=== PATIENT | female | born 1960 | race Caucasian/White ===

== ENCOUNTER 2016-09-02 09:18 | Day surgery (SDC) | payer OTHER ==
[~2016-09-02] VITALS: Ht 167.6 cm; Wt 65.8 kg
[~2016-09-02 09:18] MED LIST: EFFEXOR75 MG PO; FISH OIL-OMEGA1 EACH PO; NAPROSYN500 MG PO; NEURONTIN300 MG PO; POTASSIUM-9999 MG PO; SENOKOT S,PE1 TABLET PO; TOPAMAX50 MG PO; ZANAFLEX4 M1 PO
== END 2016-09-02 11:10 | disposition home or self-care (01) ==
LOC: PAIN 09:18 → SDC 10:00 → PAIN 10:00
DX: M50.122 Cervical disc disorder at C5-C6 level with radiculopathy (principal); Z87.891 Personal history of nicotine dependence
CPT/HCPCS: J1030; J2250; J3010

== ENCOUNTER 2016-10-06 13:14 | Day surgery (SDC) | payer OTHER ==
[~2016-10-06] VITALS: Ht 167.6 cm; Wt 65.8 kg
== END 2016-10-06 15:34 | disposition home or self-care (01) ==
LOC: PAIN 13:14 → SDC 13:45 → PAIN 13:45
PROC: 3E0S33Z Introduction of Anti-inflammatory into Epidural Space, Percutaneous Approach (ICD-10-PCS; principal; 2016-10-06)
DX: M47.22 Other spondylosis with radiculopathy, cervical region (principal); F41.9 Anxiety disorder, unspecified; M47.816 Spondylosis without myelopathy or radiculopathy, lumbar region; M79.7 Fibromyalgia; G62.9 Polyneuropathy, unspecified; Z87.891 Personal history of nicotine dependence; Z85.71 Personal history of Hodgkin lymphoma; M81.0 Age-related osteoporosis without current pathological fracture; Z85.828 Personal history of other malignant neoplasm of skin; Z98.1 Arthrodesis status; Z88.5 Allergy status to narcotic agent
CPT/HCPCS: J1030; J2250; J2405; J3010

== ENCOUNTER 2016-11-17 14:14 | Day surgery (SDC) | payer OTHER | END 2016-11-17 15:54 | disposition home or self-care (01) | LOC: PAIN 14:14 → SDC 14:45 → PAIN 14:45 | DX: M47.26 Other spondylosis with radiculopathy, lumbar region (principal); M47.22 Other spondylosis with radiculopathy, cervical region; M79.7 Fibromyalgia; G62.9 Polyneuropathy, unspecified; Z87.891 Personal history of nicotine dependence; Z85.72 Personal history of non-Hodgkin lymphomas | CPT/HCPCS: J1030; J2250; J3010; S0020 ==

== ENCOUNTER 2016-11-24 14:20 | Day surgery (SDC) | payer OTHER ==
[~2016-11-24] VITALS: Ht 167.6 cm; Wt 65.8 kg
[2016-11-24] MEDS ORDERED: GABAPENTIN400 MG PO (14:35)
== END 2016-11-24 16:35 | disposition home or self-care (01) ==
LOC: PAIN 14:20 → SDC 15:00 → PAIN 15:00
DX: M47.26 Other spondylosis with radiculopathy, lumbar region (principal); M48.061 Spinal stenosis, lumbar region without neurogenic claudication; F41.1 Generalized anxiety disorder; G62.9 Polyneuropathy, unspecified; G43.909 Migraine, unspecified, not intractable, without status migrainosus; Z85.72 Personal history of non-Hodgkin lymphomas; M81.0 Age-related osteoporosis without current pathological fracture; Z98.1 Arthrodesis status; Z85.828 Personal history of other malignant neoplasm of skin; Z87.891 Personal history of nicotine dependence
CPT/HCPCS: J1030; J2250; J3010; S0020

== ENCOUNTER → 2016-12-22 | Outpatient (CLI) | payer OTHER ==
[~2016-12-22] MED LIST changes: +GABAPENTIN400 MG PO
[2016-12-22 16:43] LABS: APPEARANCE CLEAR/COLORLESS
[2016-12-22 16:47] LABS: RED CELL DILUTION 1
[2016-12-22 16:48] LABS: RED CELL AREA COUNTED 18; RED CELL COUNT 2 /MM^3 (0-1); WBC AREA COUNTED 18; WBC DILUTION 1; WHITE CELL COUNT 1 /MM^3 (0-5); WHITE CELL RAW COUNT 1
[2016-12-22 17:05] LABS: CSF EOSINOPHILS 0 % (0-25); MONO RAW COUNT 1; MONONUCLEAR WBC'S 100 % (50-90); POLYNUCLEAR WBC'S 0 % (0-3)
[2016-12-24 21:44] LABS: Albumin, Serum 4.8 g/dL (3.5-4.9); IgG Index, CSF 0.47 index (<0.66); Synthesis Rate IgG, CSF -1.8 mg/24 h (-9.9-3.3)
== END | disposition home or self-care (01) ==
LOC: RAD 14:46
PROVIDERS: Psychiatry & Neurology Clinical Neurophysiology; Radiology Diagnostic Radiology
PROC: 009U3ZZ Drainage of Spinal Canal, Percutaneous Approach (ICD-10-PCS; principal; 2016-12-22)
DX: G37.9 Demyelinating disease of central nervous system, unspecified (principal); B99.9 Unspecified infectious disease
CPT/HCPCS: 62270; 77003; 82945; 83873 90; 83916 90; 84157; 86617 90; 86618 90; 87070; 87205; 89051

== ENCOUNTER 2017-01-01 14:00 | Day surgery (SDC) | payer OTHER | END 2017-01-01 15:51 | disposition home or self-care (01) | LOC: PAIN 14:00 → SDC 01-08 14:30 | DX: M47.26 Other spondylosis with radiculopathy, lumbar region (principal); M54.5 Low back pain; M47.22 Other spondylosis with radiculopathy, cervical region; M79.7 Fibromyalgia; G62.9 Polyneuropathy, unspecified; Z87.891 Personal history of nicotine dependence; Z85.72 Personal history of non-Hodgkin lymphomas ==

== ENCOUNTER 2017-01-08 13:40 | Day surgery (SDC) | payer OTHER ==
[~2017-01-08] VITALS: Ht 167.6 cm; Wt 65.8 kg
== END 2017-01-08 15:25 | disposition home or self-care (01) ==
LOC: PAIN 13:40
DX: M47.22 Other spondylosis with radiculopathy, cervical region (principal); M54.2 Cervicalgia; M47.26 Other spondylosis with radiculopathy, lumbar region; M79.7 Fibromyalgia; G62.9 Polyneuropathy, unspecified; F41.1 Generalized anxiety disorder; Z85.72 Personal history of non-Hodgkin lymphomas; Z85.828 Personal history of other malignant neoplasm of skin; Z87.891 Personal history of nicotine dependence
CPT/HCPCS: J1030; J2250; J3010; S0020

== ENCOUNTER 2017-01-19 09:30 | Day surgery (SDC) | payer OTHER ==
[~2017-01-19] VITALS: Ht 167.6 cm; Wt 65.8 kg
== END 2017-01-19 11:35 | disposition home or self-care (01) ==
LOC: PAIN 09:30 → SDC 10:00 → PAIN 10:00
DX: M47.22 Other spondylosis with radiculopathy, cervical region (principal); M79.7 Fibromyalgia; M47.26 Other spondylosis with radiculopathy, lumbar region; G62.9 Polyneuropathy, unspecified; F41.1 Generalized anxiety disorder; Z85.72 Personal history of non-Hodgkin lymphomas; Z85.828 Personal history of other malignant neoplasm of skin; Z87.891 Personal history of nicotine dependence; Z86.73 Personal history of transient ischemic attack (TIA), and cerebral infarction without residual deficits
CPT/HCPCS: J1100; J2250; J3010